=== PATIENT | male | born 1965 | race Caucasian/White ===

== ENCOUNTER 2018-10-19 09:57 | Outpatient (CLI) | payer OTHER ==
--- NOTE | 2018-10-19 11:49 | RAD ---
THREE VIEWS RIGHT ANKLE: COMPARISON: None. HISTORY: Right ankle pain. FINDINGS: Three views of the right ankle show no evidence of acute fracture or dislocation. Mild soft tissue s welling is seen. No degenerative changes are present. IMPRESSION: No evidence of acute osseous abnormality. POS: MICHAEL
== END 2018-10-19 09:58 | disposition home or self-care (01) ==
LOC: BICRAD 09:57
PROVIDERS: ATTEND Family Medicine
DX: M25.571 Pain in right ankle and joints of right foot (principal)

== ENCOUNTER 2019-08-15 18:30 | Outpatient (CLI) | payer OTHER | END 2019-08-15 18:31 | disposition home or self-care (01) | LOC: SLEEPLAB 18:30 | PROVIDERS: ATTEND Family Medicine | DX: F51.9 Sleep disorder not due to a substance or known physiological condition, unspecified (principal); G47.33 Obstructive sleep apnea (adult) (pediatric); G47.9 Sleep disorder, unspecified; R53.83 Other fatigue; R09.89 Other specified symptoms and signs involving the circulatory and respiratory systems; G47.10 Hypersomnia, unspecified; R06.83 Snoring; I10 Essential (primary) hypertension; G47.00 Insomnia, unspecified; E66.9 Obesity, unspecified; Z68.36 Body mass index [BMI] 36.0-36.9, adult | CPT/HCPCS: 95806 ==

== ENCOUNTER 2020-07-17 21:34 | Observation (INO) | payer OTHER ==
[~2020-07-17 21:34] MED LIST: Iopamidol-370 76% 500 ML 1 ML ONE
[2020-07-17 21:57] LABS: #Basophils 0.1 thou/uL (0.0-0.2); #Eosinphils 0.3 thou/uL (0.0-0.7); #Monocytes 0.7 thou/uL (0.11-0.59); #Neutrophils 4.5 thou/uL (1.40-6.50); %Basophils 0.7 % (0.0-1.0); %Eosinophils 3.5 % (0.0-10.0); %Lymphocytes 34.8 % (21.0-51.0); %Monocytes 8.2 % (0.0-10.0); %Neutrophils 52.8 % (42.0-75.0); Hemoglobin 14.8 g/dL (14.0-18.0); Mean Corpuscular HGB CONC 34.7 g/dL (32.0-36.0); Mean Corpuscular Hemoglobin 32.4 pg (27.0-31.0); Mean Corpuscular Volume 93.5 fL (78.0-98.0); Mean Platelet Volume 6.7 fL (7.4-10.4); Platelet Count 252 thou/uL (130-400); RBC Distribution Width 12.2 % (11.5-14.5); Red Blood Cell (RBC) Count 4.56 mill/uL (4.70-6.10); White Blood Cell (WBC) Count 8.6 thou/uL (4.8-10.8)
--- NOTE | 2020-07-17 21:57 | CT ---
CT BRAIN NONCONTRAST: DATE: 07/17/2020 HISTORY: 55-year-old male with altered mental status and left facial droop. Dr. Hannah gave verbal report to Dr. Goyal of the ER at 9:54 PM 07/17/2020 for this level 2 stroke yemi rt case. FINDINGS: There is no evidence of acute intra-axial or extra-axial hemorrhage. There is no midline shift or any other mass effect. There is no extra-axial fluid collection. There is no evidence of obstructive hydrocephalus. Calvarium is intact. IMPRESSION: No acute intracranial findings.
[2020-07-17 22:02] LABS: INR-International Normal Ratio 0.8; PTT 29.7 sec (22.9-36.1); Prothrombin Time 11.7 sec (12.0-14.7)
[2020-07-17 22:16] LABS: ALT (SGPT) 26 U/L (8-55); AST (SGOT) 20 U/L (5-34); Albumin 4.3 g/dL (3.5-5.0); Alkaline Phosphatase 81 U/L (40-110); Anion Gap 18 mmol/L (10-20); BUN (Urea Nitrogen) 14 mg/dL (8.4-25.7); Bilirubin, Total 0.2 mg/dL (0.2-1.2); CK (CPK) 136 U/L (30-200); Calc. Creatinine Clearance 0 mL/min (70-130); Calcium 9.1 mg/dL (7.8-10.44); Carbon Dioxide 23 mmol/L (22-29); Chloride 106 mmol/L (98-107); Estimated GFR-MDRD 72; Globulin 3.1 g/dL (2.4-3.5); Glucose 112 mg/dL (70-105); Potassium 4.1 mmol/L (3.5-5.1); Protein, Total 7.4 g/dL (6.0-8.3); Sodium 143 mmol/L (136-145)
--- NOTE | 2020-07-17 22:17 | CT ---
CT ANGIOGRAM NECK WITH CONTRAST CT ANGIOGRAM BRAIN WITH CONTRAST: DATE: 07/17/2020 9:57 PM HISTORY: 55-year-old male with altered mental status and left facial droop. Dr. Hannah gave verbal report for this level 2 stroke alert study to Dr. Goyal at 10:14 PM 07/17/2020 TECHNIQUE: After IV contrast injection, arterial bolus chasing technique scan performed from AP window to vertex of head. Coronal and sagittal 3-D MIP reconstructions. FINDINGS: Bilateral MCAs: No significant stenosis, thrombosis, or occlusion in M1 segments. Bilateral ACAs: Diminutive right A1 segment. Normal caliber left A1 segment and bilateral A2 segments . Bilateral P-comm's: Patent origin of right ELECTRICIAN FRONT. Left P1 segment and bilateral P2 segments are patent. Basilar: Patent Intracranial vertebrals: Right side dominant. No short segment focal high-grade stenosis. Bilateral cervical vertebral sac: Origins difficult to visualize because of body habitus. No high-gra de stenosis identified otherwise. Brachiocephalic: No high-grade stenosis. Left subclavian: No high-grade stenosis. Right subclavian: Obscured by streak artifact. Bilateral common carotids: No high-grade stenosis identified, but proximal right common carotid poorl y visualized because of streak artifact and body habitus.. Bilateral internal carotids: No stenosis identified. IMPRESSION: Negative
[2020-07-17] MEDS ORDERED: Lorazepam 2 MG/ML VIAL ONE ×3 (22:19→23:22)
[2020-07-17 22:21] LABS: Acetaminophen Less than 6.0 mcg/mL (10.0-30.0); Alcohol 258 mg/dL (Less than 10); Salicylate Less than 8.0 mg/dL (15.0-30.0)
--- NOTE | 2020-07-17 22:29 | RAD ---
RADIOGRAPH CHEST 1 VIEW: DATE: 07/17/2020 HISTORY: 55-year-old male with altered mental status. Concern for aspiration. FINDINGS: The visualized lung alfredo are clear. The cardiomediastinal silhouette and hilar shadows are normal. The lateral costophrenic angles are sharp. The osseous structures appear normal. There is no pneumothorax. IMPRESSION: Negative.
[2020-07-17 22:44] LABS: Bilirubin Negative (Negative); Blood, Urine Negative (Negative); Clarity Clear (Clear); Glucose, Urine (Dipstick) Normal (Negative); Ketone, Urine Negative (Negative); Leukocyte Negative Leu/uL (Negative); Nitrite Negative (Negative); Protein, Urine (Dipstick) Negative (Neg-Trace); Specific Gravity, Urine 1.013 (1.002-1.036); Urobilinogen Normal mg/dL (Less than 2)
[2020-07-17 22:54] LABS: Amphetamine Not Detected (NotDetected); Barbiturates Screen Not Detected (NotDetected); Benzodiazepine Screen Not Detected (NotDetected); Cocaine Metabolite Screen Not Detected (NotDetected); Medtox Control Line Valid? VALID (VALID); Medtox Reader # READER 4; Methadone Not Detected (NotDetected); Methamphetamine Not Detected (NotDetected); Opiate Screen Not Detected (NotDetected); Oxycodone Screen Not Detected (NotDetected); Phencyclidine (PCP) Not Detected (NotDetected); THC/Cannabinoid Screen Not Detected (NotDetected); Tricyclic Screen Not Detected (NotDetected)
[2020-07-17] MEDS ORDERED: Haloperidol Lactate 5 MG/ML VIAL ONE (23:06)
[2020-07-17] MEDS ORDERED: Labetalol HCl 100 MG/20 ML VIAL SLOW IVP PRN (23:32)
--- NOTE | 2020-07-18 00:05 | PDOC.BPN ---
- Brief Progress Note [id number] dictated
[2020-07-18] MEDS ORDERED: Lorazepam 2 MG/ML VIAL ONE ×2 (01:31→01:42)
--- NOTE | 2020-07-18 01:53 | HP ---
CHIEF COMPLAINT: Altered mental status. HISTORY OF PRESENT ILLNESS: Mr. Patton is a 55-year-old male with past medical history of hypertension, was brought to the emergency room after he had some left-sided facial weakness, slurring of speech, and altered mental status. It was also reported the patient was shaking and unresponsive. Everything started 30 minutes prior to arrival. As per patient's , the patient was sitting in his chair and got up and went to his bedroom, then she heard some weird noises and went in there, and he was altered. He did not recognize her or anyone else for a brief period of time. When the EMS arrived, there was no facial droop noticed. It was reported the patient was very agitated and restless. In the emergency room, the patient was very restless, confused, agitated, was found to be alcohol intoxicated with an elevated alcohol level. He was given Ativan 2 mg. Currently, the patient is sleeping, snoring, but protecting his airway. The patient is going to be admitted to the hospital for further management. PAST MEDICAL HISTORY: Hypertension. PAST SURGICAL HISTORY: Cholecystectomy. SOCIAL HISTORY: Former tobacco user. Quit dipping tobacco about 1.5 years ago, drinks alcohol socially. FAMILY HISTORY: Reviewed and noncontributory. HOME MEDICATIONS: See home medication reconciliation form for updated medications. ALLERGIES: NO KNOWN ALLERGIES. REVIEW OF SYSTEMS: Unable to obtain. The patient is currently sedated after receiving Ativan. PHYSICAL EXAMINATION: GENERAL: The patient is sedated this morning, protecting his airway. VITAL SIGNS: Blood pressure 156/79, pulse is 82, respiratory rate is 16, temperature 97.6, oxygen saturation 95% on room air. HEAD AND NECK: Normocephalic and atraumatic. NECK: Supple. CHEST: Fair bilateral air entry. HEART: S1, S2. Regular. ABDOMEN: Soft, nontender. Bowel sounds present. NEURO: The patient is sedated. Moving extremities. PSYCH: Unable to assess. EXTREMITIES: No clubbing or cyanosis. GENITOURINARY: No suprapubic tenderness. No flank tenderness. LABORATORY DATA: Urine drug screen negative. Urinalysis unremarkable. Chest x-ray, no acute findings. Alcohol level elevated to 158. Electrolytes reviewed, unremarkable. LFTs unremarkable. CT brain, no acute findings. CTA brain and neck, no acute finding. WBC count is 8.6, hemoglobin 14.8, and platelets 252. ASSESSMENT: 1. Acute alcohol intoxication. 2. Facial drooping transient as per family, which resolved, ? transient ischemic attack, unlikely. 3. Hypertension. PLAN: 1. Admit. 2. Frequent neuro checks. 3. Fall precautions. 4. IV fluids. 5. Reassess patient in a.m. without further neurological workup regarding the facial drooping, the patient obviously was intoxicated, to consult Neurology in a.m. if the patient needs further workup. 6. Reconcile home medications. 7. DVT prophylaxis as appropriate. 8. Expected length of stay, at least 1 midnight if patient stable. Job ID: [id number]
[2020-07-18] MEDS: Sodium Chloride 0.9% 1,000 ML IV SCH ×3 (05:15→21:28)
[2020-07-18 05:32] LABS: Cardiac Risk 5.8 (Less than 4.5)
[2020-07-18 05:59] LABS: SARS-CoV-2 MS2 Positive; SARS-CoV-2 N Gene Negative; SARS-CoV-2 S Gene Negative; SARS-CoV-2 by NAA Not Detected (NotDetected); SARS-CoV-2 orf1ab Negative
[2020-07-18] MEDS ORDERED: Lorazepam 2 MG/ML VIAL SLOW IVP SCH (08:30)
[2020-07-18 08:40] VITALS: BMI 39.9
[2020-07-18] MEDS ORDERED: Magnevist 469MG/ML 20 ML VIAL ONE (08:59)
--- NOTE | 2020-07-18 10:07 | MRI ---
Exam: Brain MRI with and without contrast HISTORY: Altered mental status. Seizure. Claustrophobic. COMPARISON: None FINDINGS: Limited evaluation due to motion degradation on multiple sequences Gradient echo sequence: No hemorrhage Calvarium: Appropriate T1 marrow signal intensity Midline brain parenchyma: Unremarkable Cerebrum:No parenchymal mass, mass effect or midline shift. Brain volume is age-appropriate. Cortical barrett-white matter differentiation is preserved. No significant T2 or FLAIR white matter hyperintensities. Ventricles: No evidence of hydrocephalus. Sinuses and mastoid air cells: Mild mucosal thickening of the paranasal sinuses. Adequate mastoid air cell aeration Diffusion: Central arterial flow is maintained. Absent restricted diffusion. Postcontrast images: No pathologic enhancement of the brain parenchyma. IMPRESSION: 1. No pathologic enhancement of the brain parenchyma 2. Absent restricted diffusion. No acute infarct
[2020-07-18] MEDS ORDERED: Ondansetron PF 4 MG/2 ML Vial IVP PRN (10:14)
[2020-07-18] MEDS ORDERED: Acetaminophen 325 MG TAB PO PRN (10:14)
--- NOTE | 2020-07-18 11:33 | PDOC.HOSPP ---
- Subjective Encounter Date: 07/18/20 Encounter Time: 11:30 Subjective: Patient was seen and examined at the beside. Patient was undergoing EEG. Patient has no other complaints besides feeling fatigued. - Objective Vital Signs & Weight: Vital Signs (12 hours) Temp Pulse Resp BP Pulse Ox 07/18/20 07:57 98.2 F 95 16 130/69 93 L 07/18/20 04:00 98.0 F 87 18 131/65 98 Weight Weight 278 lb 3.2 oz I&O: 07/17/20 07/18/20 07/19/20 06:59 06:59 06:59 Output Total 550 Balance -550 Result Diagrams: 07/17/20 21:36 07/17/20 21:36 Additional Labs: Accuchecks 07/17/20 21:43 POC Glucose 114 H Hospitalist ROS - Review of Systems Constitutional: denies: fever Respiratory: reports: shortness of breath, SOB with excertion. denies: cough, dry, hemoptysis, pleuritic pain, sputum, wheezing Cardiovascular: denies: chest pain, palpitations, orthopnea, paroxysmal noc. dyspnea, edema, light headedness Gastrointestinal: denies: nausea, vomiting, abdominal pain, diarrhea, constipation - Medication Medications: Active Medications Generic Name Dose Route Start Last Admin Trade Name Freq PRN Reason Stop Dose Admin Sodium Chloride 1,000 mls @ 100 mls/hr 07/17/20 23:45 07/18/20 08:35 Normal Saline 0.9% IV 1,000 mls .Q10H WILLIAMS Administration Lorazepam 2 mg 07/18/20 08:30 07/18/20 08:35 Lorazepam 2 Mg/Ml Vial SLOW IVP 2 mg WILLCALL WILLIAMS Administration - Exam General Appearance: awake alert Heart: RRR, no murmur, no gallops, no rubs, normal peripheral pulses Respiratory: CTAB, no wheezes, no rales, no ronchi, normal chest expansion, no tachypnea, normal percussion Gastrointestinal: soft, non-tender, non-distended, normal bowel sounds, no palpable masses, no hepatomegaly, no splenomegaly, no bruit, no guarding, no rigidity Neurological: cranial nerve grossly intact, normal sensation to touch, no weakn ess, no focal deficits Musculoskeletal: normal tone, normal strength, no muscle wasting Psychiatric: normal affect, normal behavior, A&O x 3, oriented to person, oriented to place, oriented to time Hosp A/P - Plan AMS -likely due to alcohol--resolved TIA - with left facial droop that is resolved -CT Brain, CT angiogram and Brain MRI yielded no significant findings -Patient will undergo ECHO -Will be obtaining TSH levels, magnesium levels, lipid panel and HgBA1C levels. -Patient will be started on aspirin -Chads VASC score is 1. for now cw asa. This EEG is consistent with mild generalized nonspecific cerebral dysfunction. Alcoholism -We have started him on folic acid, thiamine, Vitamin D and B12 supplementation -Monitor LFTs HTN -Started on metropolol and losartan -Patient has adequate kidney function Factor V Leiden deficiency -With a strong family history of TIA and thromboembolism in his brother and father. -We will start him on aspirin----Chads VASC score is 1. for now cw asa. Physical therapy consult
[2020-07-18] MEDS ORDERED: Metoprolol Tartrate 5 MG/5 ML VIAL IVP PRN (11:37)
--- NOTE | 2020-07-18 13:01 | PDOC.EEG ---
Neurology EEG Report - Report Report: This EEG was performed using 24 channel [employer] video digital EEG machine with 24 disc electrodes. This was an extended 2 hours 4 minutes of EEG recording. Digital analysis of the EEG was done for Wesley and seizure detection which revealed no abnormalities. Background: The posterior background rhythm is 10 to 12 Hz. This is a low amplitude EEG with excessive beta beta activity intermixed with the background. Photic stimulation: No response seen with photic stimulation. Hyperventilation: Not performed. Sleep: No stage change was observed. EEG diagnosis: Occasional irregular theta activity seen throughout the recording. Clinical interpretation: This EEG is consistent with mild generalized nonspecific cerebral dysfunction.
--- NOTE | 2020-07-18 13:20 | CON ---
NEUROLOGY CONSULTATION DATE OF CONSULTATION: 07/18/2020 REASON FOR CONSULTATION: Altered mental status. HISTORY OF PRESENT ILLNESS: Mr. Patton is a 55-year-old male with medical history significant for hypertension, presented to the emergency department after an episode of left-sided facial weakness with left facial droop, altered mental status, and slurred speech. The episode lasted for a couple of hours and resolved on its own. The patient has no recollection of the event. Per , he was sitting in the chair and went to his bedroom, and at that time, she heard weird noises and she came to check on him, and at that time, he was extremely confused and agitated. He was also found to be intoxicated with alcohol with elevated alcohol level. He was given Ativan and admitted for further evaluation. The patient has no recollection of the event. The denies focal weakness, focal paresthesias, nausea, vomiting, headache, chest pain, abdominal pain, recent illness, or recent exposure to COVID. REVIEW OF SYSTEMS: Per , all systems reviewed and were negative except the pertinent positives and negatives mentioned in the HPI. PAST MEDICAL HISTORY: Hypertension. PAST SURGICAL HISTORY: Cholecystectomy. SOCIAL HISTORY: , lives with his . He is a former tobacco user, dipping tobacco about 1-1/2 years ago. He drinks alcohol socially. FAMILY HISTORY: No family history of stroke or seizures. HOME MEDICATIONS: See home medication reconciliation form for updated medications. ALLERGIES: NO KNOWN DRUG ALLERGIES. Vital Signs & Weight: Vital Signs (12 hours) Temp Pulse Resp BP Pulse Ox 07/18/20 07:57 98.2 F 95 16 130/69 93 L 07/18/20 04:00 98.0 F 87 18 131/65 98 Weight Weight 278 lb 3.2 oz I&O: 07/17/20 07/18/20 07/19/20 06:59 06:59 06:59 Output Total 550 Balance -550 Additional Labs: Accuchecks 07/17/20 21:43 POC Glucose 114 H Active Medications Generic Name Dose Route Start Last Admin Trade Name Freq PRN Reason Stop Dose Admin Sodium Chloride 1,000 mls @ 100 mls/hr 07/17/20 23:45 07/18/20 08:35 Normal Saline 0.9% IV 1,000 mls .Q10H WILLIAMS Administration Lorazepam 2 mg 07/18/20 08:30 07/18/20 08:35 Lorazepam 2 Mg/Ml Vial SLOW IVP 2 mg WILLCALL WILLIAMS Administration PHYSICAL EXAMINATION: General Appearance: awake alert Heart: RRR, no murmur, no gallops, no rubs, normal peripheral pulses Respiratory: CTAB, no wheezes, no rales, no ronchi, normal chest expansion, no tachypnea, normal percussion Gastrointestinal: soft, non-tender, non-distended, normal bowel sounds, no palpable masses, no hepatomegaly, no splenomegaly, no bruit, no guarding, no rigidity Neurological: Mental status, the patient is alert and oriented to person, place, and time. Recent and remote memory, intact. Fund of knowledge is appropriate. Speech is clear. Cranial nerves 2 through 12 are intact. Motor, muscle tone and bulk are normal. Strength 5/5 bilaterally. Sensory intact. Cerebellar, finger-nose testing intact. Gait deferred due to the patient's safety reason. DATA REVIEWED: I reviewed the CT scan, which was negative for acute intracranial pathology. CT of the head and neck did not reveal hemodynamically significant stenosis. MRI of the brain did not reveal any acute intracranial pathology. ASSESSMENT AND PLAN: Mr. Patton is admitted, is consulted for an episode of slurred speech, left facial weakness with left facial droop, and altered mental status, most likely transient ischemic attack. MRI of the brain reviewed, which was negative for acute intracranial pathology. Head CT did not reveal any acute intracranial pathology or bleed. CTA of the head and neck did not reveal hemodynamically significant stenosis. EEG completed for altered mental status. We will follow up on the results. Neuro checks every 4 hours. Continue home medications. Start aspirin and high-intensity statin for secondary stroke prevention. 2D echo to evaluate for left ventricular ejection fraction and rule out PFO. Telemetry to rule out arrhythmias. CIWA protocol. Continue medical management per primary team. Deep venous thrombosis prophylaxis. PT/OT/speech. We will continue to follow. Plan discussed in detail, at bedside and also during the stroke rounds. Thank you for the consult. Job ID: [id number] [facility]
[2020-07-18 13:35] LABS: INR-International Normal Ratio 0.9; PTT 30.3 sec (22.9-36.1); Prothrombin Time 12.6 sec (12.0-14.7)
[2020-07-18 13:36] LABS: D-Dimer Test 0.28 *mcg/mL (0.27-0.43)
--- NOTE | 2020-07-18 13:48 | CT ---
CT ANGIOGRAM NECK WITH CONTRAST CT ANGIOGRAM BRAIN WITH CONTRAST: DATE: 07/17/2020 9:57 PM HISTORY: 55-year-old male with altered mental status and left facial droop. Dr. Hannah gave verbal report for this level 2 stroke alert study to Dr. Goyal at 10:14 PM 07/17/2020 TECHNIQUE: After IV contrast injection, arterial bolus chasing technique scan performed from AP window to vertex of head. Coronal and sagittal 3-D MIP reconstructions. FINDINGS: Bilateral MCAs: No significant stenosis, thrombosis, or occlusion in M1 segments. Bilateral ACAs: Diminutive right A1 segment. Normal caliber left A1 segment and bilateral A2 segments . Bilateral P-comm's: Patent origin of right [employer]INE [employer]ODUCTION ENGINEER. Left P1 segment and bilateral P2 segments are patent. Basilar: Patent Intracranial vertebrals: Right side dominant. No short segment focal high-grade stenosis. Bilateral cervical vertebral sac: Origins difficult to visualize because of body habitus. No high-gra de stenosis identified otherwise. Brachiocephalic: No high-grade stenosis. Left subclavian: No high-grade stenosis. Right subclavian: Obscured by streak artifact. Bilateral common carotids: No high-grade stenosis identified, but proximal right common carotid poorl y visualized because of streak artifact and body habitus.. Bilateral internal carotids: No stenosis identified. IMPRESSION: Negative Transcribed Date/Time: 07/18/2020 1:48 PM
[2020-07-18] MEDS: Metoprolol Tartrate 25 MG TAB PO SCH (20:52)
[2020-07-19 04:51] LABS: Hemoglobin A1c 5.6 % (4.0-6.0)
[2020-07-19] MEDS: Sodium Chloride 0.9% 1,000 ML IV SCH (05:45)
[2020-07-19] MEDS ORDERED: Losartan 25 MG TAB PO SCH (09:00)
[2020-07-19] MEDS ORDERED: Aspirin 81 mg Enteric Coated Tablet PO SCH (09:00)
[2020-07-19] MEDS ORDERED: Thiamine 100 MG TAB PO SCH (09:00)
[2020-07-19] MEDS ORDERED: Folic Acid/Vit B Comp W-C PO SCH (09:00)
[2020-07-19] MEDS: Metoprolol Tartrate 25 MG TAB PO SCH (10:05)
[2020-07-19 10:06] LABS: Protein C Activity 107 % (78-152)
[2020-07-19 11:38] VITALS: BP 161/74; TEMP 98.1
--- NOTE | 2020-07-19 12:00 | PDOC.NEUPN ---
- Subjective Encounter Date: 07/19/20 Subjective: Patient feels better today. No complaints. MRI brain and EEG negative. - Objective Vital Signs & Weight: Vital Signs (12 hours) Temp Pulse Resp BP Pulse Ox 07/19/20 11:37 98.1 F 93 17 161/74 H 93 L 07/19/20 07:41 97.8 F 70 16 155/75 H 94 L 07/19/20 03:00 97.7 F 67 16 163/91 H 93 L Weight Weight 278 lb 3.2 oz I&O: 07/18/20 07/19/20 07/20/20 06:59 06:59 06:59 Intake Total 780 Output Total 550 Balance -550 780 Result Diagrams: 07/17/20 21:36 07/17/20 21:36 Radiology Reviewed by me: Yes EKG Reviewed by me: Yes ROS - Review of Systems Constitutional: denies: fever, chills, sweats, weakness, malaise, other Eyes: denies: pain, vision change, conjunctivae inflammation, eyelid inflammation, redness, other ENT: denies: ear pain, ear discharge, nose pain, nose discharge, nose congestion, mouth pain, mouth swelling, throat pain, throat swelling, other Respiratory: denies: cough, dry, shortness of breath, hemoptysis, SOB with excertion, pleuritic pain, sputum, wheezing, other Gastrointestinal: denies: nausea, vomiting, abdominal pain, diarrhea, constipation, melena, hematochezia, other Musculoskeletal: denies: neck pain, shoulder pain, arm pain, back pain, hand pain, leg pain, foot pain, other All Systems: All other systems reviewed; all pertinent +/- noted in HPI/Subj - Medication Medications: Active Medications Generic Name Dose Route Start Last Admin Trade Name Freq PRN Reason Stop Dose Admin Aspirin 81 mg 07/19/20 09:00 07/19/20 10:06 Aspirin 81 Mg Enteric Coated Tablet PO 81 mg DAILY WILLIAMS Administration Sodium Chloride 1,000 mls @ 100 mls/hr 07/17/20 23:45 07/19/20 05:45 Normal Saline 0.9% IV Not Given .Q10H WILLIAMS Lorazepam 2 mg 07/18/20 08:30 07/18/20 08:35 Lorazepam 2 Mg/Ml Vial SLOW IVP 2 mg WILLCALL WILLIAMS Administration Losartan Potassium 25 mg 07/19/20 09:00 07/19/20 10:06 Losartan 25 Mg Tab PO 25 mg DAILY WILLIAMS Administration Metoprolol Tartrate 12.5 mg 07/18/20 21:00 07/19/20 10:05 Metoprolol Tartrate 25 Mg Tab PO 12.5 mg BID WILLIAMS Administration Thiamine HCl 100 mg 07/19/20 09:00 07/19/20 10:05 Thiamine 100 Mg Tab PO 100 mg DAILY WILLIAMS Administration Vitamin B Complex/Vit C/Folic Acid 1 tab 07/19/20 09:00 07/19/20 10:06 Folic Acid/Vit B Comp W-C PO 1 tab DAILY WILLIAMS Administration - Exam General Appearance: awake alert Eye: PERRL ENT: normocephalic atraumatic Neck: supple Respiratory: CTAB Cardiovascular: RRR Gastrointestinal: soft Extremities: no cyanosis Skin: normal turgor Neurological: CN's grossly intact, normal sensation to touch, no weakness, no focal deficits, no new deficit Musculoskeletal: normal tone, normal strength, no muscle wasting PSYCH: normal affect, normal behavior, A&O x 3, oriented to person, oriented to place, oriented to time Results - Labs Result Diagrams: 07/17/20 21:36 07/17/20 21:36 Lab results: WBC 8.6 thou/uL (4.8-10.8) 07/17/20 21:36 Hgb 14.8 g/dL (14.0-18.0) 07/17/20 21:36 Hct 42.7 % (42.0-52.0) 07/17/20 21:36 MCV 93.5 fL (78.0-98.0) 07/17/20 21:36 Plt Count 252 thou/uL (130-400) 07/17/20 21:36 Neutrophils % 52.8 % (42.0-75.0) 07/17/20 21:36 Sodium 143 mmol/L (136-145) 07/17/20 21:36 Potassium 4.1 mmol/L (3.5-5.1) 07/17/20 21:36 Chloride 106 mmol/L (98-107) 07/17/20 21:36 Carbon Dioxide 23 mmol/L (22-29) 07/17/20 21:36 BUN 14 mg/dL (8.4-25.7) 07/17/20 21:36 Creatinine 1.06 mg/dL (0.7-1.3) 07/17/20 21:36 Glucose 112 mg/dL (70-105) H 07/17/20 21:36 Calcium 9.1 mg/dL (7.8-10.44) 07/17/20 21:36 Total Bilirubin 0.2 mg/dL (0.2-1.2) 07/17/20 21:36 AST 20 U/L (5-34) 07/17/20 21:36 ALT 26 U/L (8-55) 07/17/20 21:36 Alkaline Phosphatase 81 U/L (40-110) 07/17/20 21:36 Creatine Kinase 136 U/L (30-200) 07/17/20 21:36 Troponin I Less than 0.010 ng/mL (< 0.028) 07/17/20 21:36 Serum Total Protein 7.4 g/dL (6.0-8.3) 07/17/20 21:36 Albumin 4.3 g/dL (3.5-5.0) 07/17/20 21:36 Urine Ketones Negative mg/dL (Negative) 07/17/20 22:25 Urine Blood Negative (Negative) 07/17/20 22:25 Urine Nitrite Negative (Negative) 07/17/20 22:25 Ur Leukocyte Esterase Negative Lauri/uL (Negative) 07/17/20 22:25 - EKG Interpretation EKG: normal sinus rhythm - Radiology Interpretation MRI - head Additional Comment: Negative for acute intracranial pathology PN A/P (1) TIA (transient ischemic attack) Code(s): G45.9 - TRANSIENT CEREBRAL ISCHEMIC ATTACK, UNSPECIFIED Status: Acute (2) AMS (altered mental status) Code(s): R41.82 - ALTERED MENTAL STATUS, UNSPECIFIED Status: Acute - Plan Daily Plan: plan discussed w/ family ( at bedside), out of bed/ambulate Mr. Patton is a 55 year old male presented with AMS and stroke like symptoms which resolved on admission Most likely TIA. MRI Brain reviewed which was negative for acute intracranial pathology EEG reviewed which was negative for seizure activity. CTA head and neck did not show hemodynamically significant stenosis. Echo completed Results pending. Continue aspirin and high intensity statin for secondary stroke prevention. Strict control of BP and BG. Continue home medications. Cleared by P/OT/Speech. Follow up with PCP in 1-2 weeks regarding thrombosis panel which is pending to see if there is a need for long-term anticoagulation. Continue medical management per primary team Plan discussed with the patient , and the nursing staff
--- NOTE | 2020-07-19 13:19 | PDOC.DS.DS ---
Provider - Provider Date of Admission: 07/17/20 23:33 Admitting Provider: Hitesh Isaac MD Primary Care Physician: ALBERTO PARRA JR, MD Course - Hospital Course Hospital Course: Patient initially came to us for AMS and had an episode where he had left facial droop. Metabolic encephalopathy was initially believed to be caused by alcoholism as his blood alcohol level was 258. EEG was consistent with mild generalized nonspecific cerebral dysfunction. It is believed that the patient likely has Factor V Leiden, given strong family history father had a stroke in brother had some blood clot history. TIA----symptoms of left facial droop that is resolved CT Brain, CT angiogram, and MRI yielded no abnormality. Echo report shows EF of 60% and mild mitral regurgitation. Normal right atrial size normal aortic wall. No valvular abnormalities noted. Chads2 VASC score is 1. He will be discharged with aspirin and lipitor for secondary stroke prevention. He will follow up with his PCP in about a week to discuss Factor V Leiden lab results, which was sent from here, hypertension managed with his home medication, Losartan and Metropolol. Patient is hemodynamically stable and looks well and is ready to be discharged home today. - Labs Lab Results: 07/17/20 21:36 07/17/20 21:36 Abnormal Lab Results - Last 48 hrs 07/17/20 21:36: RBC 4.56 L, MCH 32.4 H, MPV 6.7 L, Monocytes # 0.7 H 07/17/20 21:36: PT 11.7 L 07/17/20 21:36: Salicylates Less than 8.0 L, Acetaminophen Less than 6.0 L, Pl asma Alcohol 258 H 07/18/20 04:54: Triglycerides 361 H, Cholesterol 219 H 07/18/20 12:17: 25-OH Vitamin D Total 14.9 L 07/19/20 04:24: Triglycerides 162 H - Physical Exam Vitals: Vital Signs (12 hours) Temp Pulse Resp BP Pulse Ox 07/19/20 11:37 98.1 F 93 17 161/74 H 93 L 07/19/20 07:41 97.8 F 70 16 155/75 H 94 L 07/19/20 03:00 97.7 F 67 16 163/91 H 93 L Weight Weight 278 lb 3.2 oz Physical Exam: The patient was seen and examined on the day of discharge. Plan - Discharge Medications Prescriptions: Aspirin [Ecotrin Low Strength] 81 mg PO DAILY 30 Days #30 tab Atorvastatin Calcium [Lipitor] 40 mg PO DAILY 30 Days #30 tab Cholecalciferol (Vitamin D3) [Vitamin D3] 2,000 unit PO DAILY 30 Days #30 capsule Home Medications: Medication Instructions Recorded Confirmed Type Losartan Potassium 100 mg PO DAILY 07/18/20 07/18/20 History Metoprolol Tartrate 50 mg PO BID 07/18/20 07/18/20 History Aspirin [Ecotrin Low Strength] 81 mg PO DAILY 30 Days #30 tab 07/19/20 Rx Atorvastatin Calcium [Lipitor] 40 mg PO DAILY 30 Days #30 tab 07/19/20 Rx Cholecalciferol (Vitamin D3) 2,000 unit PO DAILY 30 Days #30 07/19/20 Rx [Vitamin D3] capsule Allergies: No Known Drug Allergies Allergy (Verified 07/18/20 08:27) Per - Discharge Instructions Discharge Instructions:: With PCP in 1 week and to follow-up with them regarding your factor V Leiden deficiency result they can call the medical records here to get the result. Also they can follow-up on the echo report currently it is pending. You have vitamin D deficiency - send prescription for the same. Your LDL cholesterol is 120 so you will be getting Lipitor prescription. - Follow up Plan Referrals: Alberto Parra Jr, MD [Primary Care Provider] - Disposition: HOME Quality - Care Measures CORE MEASURES:: Stroke/TIA - Stroke/TIA Did you prescribe antithrombotic therapy?: Yes Specify reason for no DC antithrombotic therapy: Treatment not indicated Did you prescribe anticoagulant for A Fib/Flutter?: No Specify reason for no DC anticoagulant: Treatment not indicated Did you prescribe a statin medication?: Yes
[2020-07-20 11:18] LABS: HEX PHOS LA Tube 1 39.4 SEC; HEX PHOS LA Tube 2 36.3 SEC; Hexagonal Phospholipid Neut 3.2 SEC (0-8.0)
[2020-07-20 11:19] LABS: Factor VIII Test 236.5 % ACTIVE (56-157)
[2020-07-25 17:25] LABS: Cardiolipin IgA Ab 6.5 APL-U/mL (<14 Negative); Cardiolipin IgG Ab 1.7 GPL-U/mL (<10 Negative); Cardiolipin IgM Ab 4.4 MPL-U/mL (<10 Negative); EliA APS New Method **** NEW METHOD ****
== END 2020-07-19 12:30 | disposition home or self-care (01) ==
LOC: ERS 21:34 → 2SE 23:33
PROVIDERS: ADMIT Internal Medicine; ATTEND Internal Medicine
DX: G93.41 Metabolic encephalopathy (principal); F10.129 Alcohol abuse with intoxication, unspecified; I10 Essential (primary) hypertension; I34.0 Nonrheumatic mitral (valve) insufficiency; D68.2 Hereditary deficiency of other clotting factors; Z79.82 Long term (current) use of aspirin; Z79.899 Other long term (current) drug therapy; Z87.891 Personal history of nicotine dependence; Z20.828 Contact with and (suspected) exposure to other viral communicable diseases
CPT/HCPCS: 36415; 36416; 70450; 70496; 70498; 70553; 71045; 80053; 80061; 80306; 80307; 81003; 81240; 81241; 82306; 82550; 82607; 82746; 83036; 83090; 83735; 84443; 84484; 85025; 85240; 85300; 85303; 85305; 85307; 85379; 85598; 85610; 85730; 86147; 86850; 86900; 86901; 87635; 93005; 93306; 95712; 95819; 95957; 96374; 96375; 96376; A9579; G0378; J1630; J2060; Q9967; U0003

== ENCOUNTER 2022-02-26 11:01 | Outpatient (CLI) | payer BC | END 2022-02-26 11:02 | disposition home or self-care (01) | LOC: BICMRI 11:01 | PROVIDERS: ATTEND Orthopaedic Surgery | DX: S83.412A Sprain of medial collateral ligament of left knee, initial encounter (principal); S83.232A Complex tear of medial meniscus, current injury, left knee, initial encounter; M22.42 Chondromalacia patellae, left knee ==

== ENCOUNTER 2022-03-24 14:19 | Outpatient (CLI) | payer BC ==
[2022-03-24 15:28] LABS: #Eosinphils 0.2 10x3/uL (0.0-0.5); #Monocytes 0.7 10x3/uL (0.0-1.1); #Neutrophils 4.7 10x3/uL (1.5-8.4); %Basophils 0.5 % (0.0-2.0); %Lymphocytes 23.8 % (18.0-47.0); %Neutrophils 63.2 % (40.0-75.0); Hemoglobin 14.5 g/dL (13.5-17.5); Mean Corpuscular HGB CONC 34.1 g/dL (32.0-36.0); Mean Corpuscular Hemoglobin 31.5 pg (27.0-33.0); Mean Corpuscular Volume 92.4 fl (81.2-95.1); Mean Platelet Volume 9.3 fl (7.4-10.4); Platelet Count 223 10x3/uL (150-450); RBC Distribution Width 13.5 % (11.5-14.5); White Blood Cell (WBC) Count 7.4 10x3/uL (3.5-10.5)
[2022-03-24 15:31] LABS: Anion Gap 13 mmol/L (10-20); BUN (Urea Nitrogen) 24 mg/dL (8.4-25.7); Calc. Creatinine Clearance 0 mL/min (70-130); Calcium 9.6 mg/dL (7.8-10.44); Carbon Dioxide 26 mmol/L (22-29); Chloride 103 mmol/L (98-107); Estimated GFR 89; Glucose 135 mg/dL (70-105); Potassium 4.2 mmol/L (3.5-5.1); Sodium 138 mmol/L (136-145)
== END 2022-03-24 14:20 | disposition home or self-care (01) ==
LOC: LABBT 14:19
PROVIDERS: ATTEND Orthopaedic Surgery
DX: Z01.818 Encounter for other preprocedural examination (principal); S83.232A Complex tear of medial meniscus, current injury, left knee, initial encounter; Z20.822 Contact with and (suspected) exposure to COVID-19
CPT/HCPCS: 80048; 85025; 87811; 93005; 93010

== ENCOUNTER 2022-03-27 05:50 | Day surgery (SDC) | payer BC ==
[2022-03-25 14:09] VITALS: BMI 34.7
[2022-03-27] MEDS ORDERED: PROPOFOL 20 ML ONE (06:57)
[2022-03-27] MEDS ORDERED: CEFAZOLIN 2 GM VIAL ONE (07:15)
[2022-03-27] MEDS ORDERED: Sodium Chloride 0.9% 100 ML ONE (07:15)
[2022-03-27] MEDS ORDERED: fentaNYL Citrate/PF 100 MCG/2 ML SYRINGE ONE (07:35)
[2022-03-27] MEDS ORDERED: Lidocaine 2% w/Epinephrine 1:200K 20 ML VIAL ONE (07:39)
[2022-03-27] MEDS ORDERED: Ketorolac Tromethamine 30 MG/ML VIAL ONE (07:39)
[2022-03-27] MEDS ORDERED: PROPOFOL 200 MG/20 ML VIAL ONE (07:39)
[2022-03-27] MEDS ORDERED: Ondansetron PF 4 MG/2 ML Vial ONE (07:39)
[2022-03-27] MEDS ORDERED: Bupivacaine HCl 0.5%/Epinephrine 1:200,000/PF 30 ml Vial ONE (07:39)
[2022-03-27] MEDS ORDERED: Lidocaine 1% PF 5 ML VIAL ONE (07:39)
[2022-03-27] MEDS ORDERED: Lidocaine 1% (PF) 30 ML VIAL ONE (08:13)
== END 2022-03-27 10:20 | disposition home or self-care (01) ==
LOC: SDC 05:50
PROVIDERS: ATTEND Orthopaedic Surgery
PROC: 0SBD4ZZ Excision of Left Knee Joint, Percutaneous Endoscopic Approach (ICD-10-PCS; principal; 2022-03-27)
DX: S83.232A Complex tear of medial meniscus, current injury, left knee, initial encounter (principal); M22.42 Chondromalacia patellae, left knee; M23.8X2 Other internal derangements of left knee; G47.33 Obstructive sleep apnea (adult) (pediatric); I10 Essential (primary) hypertension; Z79.82 Long term (current) use of aspirin; Z79.899 Other long term (current) drug therapy; W17.89XA Other fall from one level to another, initial encounter
CPT/HCPCS: J0690; J1885; J2001; J2405; J2704; J3490